=== PATIENT | female | born 1940 | race Caucasian/White ===

== ENCOUNTER 2016-05-06 17:44 | Outpatient (CLI) | payer MEDICARE, OTHER ==
[2016-05-06] MEDS ORDERED: IOPAMIDOL-300 50 ML VIAL PO ONE (19:55)
[2016-05-06] MEDS ORDERED: IOPAMIDOL-300 100 ML VIAL IVP ONE (19:55)
== END 2016-05-06 17:45 | disposition home or self-care (01) ==
DX: C56.9 Malignant neoplasm of unspecified ovary (principal); C78.7 Secondary malignant neoplasm of liver and intrahepatic bile duct; C77.2 Secondary and unspecified malignant neoplasm of intra-abdominal lymph nodes
CPT/HCPCS: 74177; Q9967

== ENCOUNTER 2016-06-21 12:56 | Outpatient (CLI) | payer MEDICARE, OTHER | END 2016-06-21 12:57 | disposition home or self-care (01) | DX: Z51.5 Encounter for palliative care (principal); G47.00 Insomnia, unspecified; F41.9 Anxiety disorder, unspecified; M25.512 Pain in left shoulder; M25.511 Pain in right shoulder; C56.9 Malignant neoplasm of unspecified ovary; C78.7 Secondary malignant neoplasm of liver and intrahepatic bile duct; C79.89 Secondary malignant neoplasm of other specified sites; I10 Essential (primary) hypertension; Z79.52 Long term (current) use of systemic steroids ==

== ENCOUNTER 2016-07-04 11:36 | Outpatient (CLI) | payer MEDICARE, OTHER | END 2016-07-04 11:37 | disposition home or self-care (01) | DX: Z51.5 Encounter for palliative care (principal); C56.9 Malignant neoplasm of unspecified ovary; C79.89 Secondary malignant neoplasm of other specified sites; M25.512 Pain in left shoulder; M25.511 Pain in right shoulder; M54.2 Cervicalgia; F41.9 Anxiety disorder, unspecified; Z79.899 Other long term (current) drug therapy; D61.811 Other drug-induced pancytopenia; Z66 Do not resuscitate; R11.0 Nausea; G62.9 Polyneuropathy, unspecified ==

== ENCOUNTER 2016-08-26 10:28 | Outpatient (CLI) | payer MEDICARE, OTHER ==
--- NOTE | 2016-08-27 06:03 | CONSULTATION NOTE ---
DATE OF CONSULTATION: 08/26/2016 00:00:00 REQUESTING PROVIDER: Moustapha Jules MD TIME OF VISIT: 10:40 to 11:40. Thank you, Dr. Jules, for asking the Palliative Care Consult Service to be involved in the care of your patient. I am providing support regarding symptom management, as well as goals of care and transition planning. 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 She has undergone multiple chemotherapy regimens after surgery. She is currently being treated with topotecan and Avastin, was having difficulty with thrombocytopenia and has recently on her appointment revamped her program to accommodate this. Was just sobering news of her increasing CA-125, which went up from 28.6 in July to now 43.2, and increasing LDH brings a bit of a dose of reality that she most likely will continue to decline, though certainly are hoping for increased quality of life, as well as increase quantity of life. SYMPTOM BURDEN: She actually have fairly low symptom burden. She denies any pain. She does have some mild fatigue at a 2/10, and the rest of her symptoms, as far as drowsiness, nausea, anorexia, shortness of breath, depression, and anxiety are quite controlled, and she perceives her current quality of life as doing quite well. CODE STATUS: The patient is a DO NOT RESUSCITATE, LIMITED INTERVENTIONS, DETERMINE THE USE OR LIMITATION OF ANTIBIOTICS WITH COMFORT THE GOAL AND NO MEDICALLY ASSISTED NUTRITION. Her focus, again, is on quality of life, hoping again for more quantity of life, and is doing fairly well, as far as currently tolerating her regimen. 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 She is approaching this very thoughtfully and wanting to be engaged in managing her journey. She does share this with friends and family through communication with blogs, phone calls, and ongoing support. She continues to work towards getting her affairs in order, and her , Justin, is very engaged and partnered in this process. REVIEW OF SYSTEMS CONSTITUTIONAL: Overall, she is feeling quite well, though she has some fatigue. HEENT: Eyes: She does have Fuchs. GASTROINTESTINAL: She has not had any nausea. GENITOURINARY: She continues to have small amounts of pink vaginal drainage with some fluctuating in this. No recurrent cystitis symptoms. MUSCULOSKELETAL: She is feeling much improved after the OT, as far as her neck and shoulder pain and discomfort, has worked well, as far as support with this. SKIN: She continues with dryness. 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 GASTROINTESTINAL: She does report some multiple loose stools, has, over the last couple days, had more of a mustard color. We did discuss, if it turns chalky white, or if signs or symptoms of bleeding, to notify the healthcare providers, though patient is certainly during this time period reports intake of fiber foods of fresh fruits and vegetables. PSYCHIATRIC: She does express feeling somewhat flattened in responsive to this last move; some concern about her emotional response her regarding this. She continues to work with her anxiety and plans to follow up with a psychiatrist. ENDOCRINE: No recent history of infections. HEMATOLOGIC/IMMUNOLOGIC: Continues to have fluctuating platelets in response to her topotecan on 08/19/2016, though they were up to 267. LABORATORY: She remains slightly anemic with her hemoglobin 10.4, hematocrit 30.8. Her white count is sitting at 5.6. Her other abnormal labs include alkaline phosphate and LDH at 467. PHYSICAL EXAMINATION GENERAL: This is a vania 76-year-old woman who appears younger than her stated age. Her voice is modulated. She is able to engage and participate in the conversation. HEENT: Eyes with slight periorbital edema. ENT: Mucous membranes are moist. NECK: Trachea midline. RESPIRATORY: Her breath sounds are clear. CARDIOVASCULAR: Pulse is 74 and regular, blood pressure 124/81. ABDOMEN: She continues to have some roundness and fullness, some firmness, but no tautness, no masses appreciated. Exam is limited as she is standing. SKIN: Color pale. EXTREMITIES: She continues with some limited range of motion in her arms and shoulders. Her gait is steady, and no lower extremity edema. PALLIATIVE CARE DISCUSSION/WHO IS PRESENT: Myself, the patient, and her , again looking at quality of life issues, particularly around relationships within her family, have best to annotate and support others who are feeling somewhat burdened by her and impending decline and disease process, ways to set limits, encouraging others to find outside support and also from communication, as far as a less busy work was reviewed. The patient is quite thoughtful, as far as an intentional putting the pieces in place. I did encourage, of course, to continue to look forward to finishing up legal affairs, spending time that brings her karmen and comfort, resolving any regrets or conversations that need to be had, as well as ventured into planning today. IMPRESSION: This is a 76-year-old woman with stage IV ovarian cancer with persistent disease in her liver, pelvic, now a 4th-line chemotherapy. Continues to recognize the seriousness of her illness, as well as the chronicity, though feeling somewhat more vulnerable with her changing her recent regimen and her rising CA-125. RECOMMENDATIONS/COUNSELING DONE 1. Bilateral shoulder pain. She is finding relief in working with OT; does feel like most of that was not completed. 2. Abdominal vaginal discomfort cystitis. This is managed with her CBD has not needed any change in her pain regimen. 3. Anxiety appears to be currently managed on her current medications; did review and support looking at the different paths, as far as this last leg in her journey. She continues to focus on quality of life, as well as best of intentions looking towards quantity of life. 4. Advanced care planning. Patient does have a POLST in place. Her documents have been distributed to appropriate providers and to the HIM. She and her are looking at finishing up her legal affairs and planning. Patient counseling was done regarding weighing benefits and burdens, decision points regarding chemotherapy and the continuum of care including hospice. The patient presents with low symptom burden, no weight loss, continued ongoing chemotherapy as prognostic indicators in her favor. Time spent 60 minutes, with greater than 50% of this done in counseling regarding psychosocial aspects and advanced care planning needs for living with stage IV disease, as well as anticipatory guidance. JOB #: [id number] EXT JOB #:[id number] MANJULA
== END 2016-08-26 10:29 | disposition home or self-care (01) ==
LOC: PC 10:28
PROVIDERS: ATTEND Nurse Practitioner Adult Health
DX: Z51.5 Encounter for palliative care (principal); M25.512 Pain in left shoulder; M25.511 Pain in right shoulder; R10.9 Unspecified abdominal pain; R10.2 Pelvic and perineal pain; N30.90 Cystitis, unspecified without hematuria; F41.9 Anxiety disorder, unspecified; C56.9 Malignant neoplasm of unspecified ovary; C78.7 Secondary malignant neoplasm of liver and intrahepatic bile duct; F32.9 Major depressive disorder, single episode, unspecified; Z66 Do not resuscitate; Z79.899 Other long term (current) drug therapy
CPT/HCPCS: 99215

== ENCOUNTER 2016-11-08 13:30 | Outpatient (CLI) | payer MEDICARE, OTHER ==
--- NOTE | 2016-11-08 16:28 | PROVIDER PROGRESS NOTE ---
Palliative Care Follow Up - Referral Referring Provider: Dr. Jules/Denis Time of Visit: [id number] Referral setting: Home (patient is seen in her home setting, she presents with increased fatigue and decreased activity tolerance and to facilitate a family meeting) Referral Reason: Stage IV Ovarian Cancer - Information Sources Records Reviewed: Old records reviewed History obtained from: Patient Exam limitations: No limitations - History of Present Illness Update Brief HPI Update: This is a vania 76-year-old woman with stage IV ovarian cancer, originally diagnosed in 04/2014 with metastatic high-grade serous carcinoma. She has undergone multiple chemotherapeutic creatinine regimens since her original surgery. As she is currently on third line Topotecan and Avastin, she has been having difficulty with thrombocytopenia that has been watching an increase in her CA-125 and increasing LDH. Most recently she had a restaging CT scan of the abdomen and pelvis, unfortunately the liver demonstrated progression of disease with a new masses in the portal confluence measuring 3.5 x 3.3 cm and a mass adjacent to the falciform ligament measuring 3.2 x 1.9 cm. She also has a increased size with several of her nodes as well as an increase in a splenic lesion. The mass at her vaginal cuff is also increased in size now measuring 6.6x3.1 cm. Concerning was also a new diagnosis of widespread pulmonary metastases, measuring up to 3.5 cm. The patient reports she has been having increased anorexia, early satiety, increased reflux symptoms, an underlying nausea. 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 She is also noted significant increase in fatigue , this is most likely multifactorial, if she is anemic, has had 5-6 pound weight loss, and shows disease progression. She requested a meeting, with her family, and to prepare for a discussion regarding goals of care. Social History - Living Situation Living arrangement: At home Living Situation: With spouse/s.o. Support System: Her daughter Dara and her Javier from [place], are joining today for goals of care conversation and support Medications/Allergies - Medications Home Medications: Ambulatory Orders Medication Instructions Recorded Confirmed Hydrochlorothiazide 25 mg PO DAILY 05/02/14 10/16/16 Nefazodone HCl 250 mg PO DAILY 05/02/14 10/16/16 Raloxifene [Evista] 60 mg PO DAILY 05/02/14 11/08/16 Venlafaxine HCl [Venlafaxine HCl 75 mg PO DAILY 05/02/14 11/08/16 ER] Calcium Carb, Citrate/Vit D3 1 each PO DAILY 05/11/14 10/16/16 [Citracal + D ER Tablet] Cholecalciferol (Vitamin D3) 5,000 unit PO DAILY 05/11/14 10/16/16 [Vitamin D] Loteprednol Etabonate [Lotemax] 1 drop EACHEYE DAILY 05/11/14 10/16/16 Omeprazole [PriLOSEC] 20 mg PO BID 03/27/16 10/16/16 Atenolol 50 mg PO DAILY 08/21/16 10/16/16 LORazepam [Ativan] 0.5 mg PO Q6H PRN 11/06/16 11/06/16 Prochlorperazine Supp [Compazine 25 mg [place] PRN PRN 11/08/16 11/08/16 Supp] - Allergies Allergies/Adverse Reactions: Allergies Allergy/AdvReac Type Severity Reaction Status Date / Time silver * Allergy Intermediate skin Verified 05/09/14 10:00 [From [employer] Mesh] excoriation Contrast dye Allergy Anaphylaxis Uncoded 05/05/14 13:15 Seafood Allergy Anaphylaxis Uncoded 05/05/14 13:15 Review of Systems - Constitutional Constitutional: reports: Fatigue (much more prominent limiting activity; prolonged standing causing dizzyness;needing to pace activities), Poor appetite , Weight loss (noted 5-6 pounds) - Eyes Eyes: reports: Vision loss, Corrective lenses - Ears, Nose & Throat Ears, Nose & Throat: denies: Hearing loss, Sore throat - Cardiovascular Cariovascular: reports: Lightheadedness, Exertional dyspnea, Decr. exercise tolerance. denies: Chest pain, Edema - Respiratory Respiratory: reports: SOB with exertion. denies: Cough - Gastrointestinal Gastrointestinal: reports: Abdominal pain (limited but uncomfortable; located above umbilicus around area mass palapated), Change in bowel habits (if bowels don't move increase discomfort and distress), Nausea, Reflux/heartburn, Poor appetite, Other (early satiety) - Genitourinary Genitourinary: denies: Incontinence - Musculoskeletal Musculoskeletal: reports: Limited range of motion (upper arms/shoulders), Muscle weakness - Integumentary Integumentary: reports: Hair changes (mild thinning) - Neurological Neurological: reports: General weakness, Incoordination (walks wide based for balance; using cane when out) - Psychiatric Psychiatric: reports: Anxiety (supported with medication and pscychiatrist). denies: Depression - Endocrine Endocrine: reports: Other (no diabetes/thyroid issues) - Hematologic/Lymphatic Hematologic/Lymphatic: reports: Anemia (HCT @ 31) Physical Examination - Vital Signs Temperature: 98.6 C Pulse Rate: 89 Respiratory Rate: 18 O2 Saturation: 95 (RA @ rest) Blood Pressure: 128/64 - Physical Exam General Appearance: positive: No acute distress Eyes Bilateral: positive: Normal inspection ENT: positive: No signs of dehydration Neck: positive: No JVD, Trachea midline Respiratory: positive: Breath sounds nml. negative: Wheezes, Rales Cardiovascular: positive: Regular rate & rhythm Abdomen: positive: Nml bowel sounds, Tenderness, Mass (palpated lemon size mass below sternal notch over area; abdomen soft;no s/s ascites or lower extremity edeam). negative: Hepatomegaly Skin: positive: Pallor Extremities: positive: No pedal edema, Other (appears with some muscle wasting in upper extremeties) Neurologic/Psychiatric: positive: Oriented x3, Mood/affect nml Palliative Care - POLST Patient has POLST: Yes POLST Status: DNR, Limited Interventions (Determine the use of antibiotics with comfort as the goal; No medically assisted nutrition) Pain: Pain worsening, Location (left sided "stitch"; mid abdominal), Severity ( mild, no further medication needed than cannabis) Drowsiness: Mild (1-3) Nausea: Mild (1-3) Anxiety: Mild (1-3) Dyspnea: Mild (1-3) Anorexia: Moderate (4-6), Weight loss Insomnia: Sleeps well Constipation: No Feelings of wellbeing/Perceived Quality of Life: Worsening (Feels things are shifting; scans had confirmed what she had been experiencing; getting very tired of chemotherapy as well; was hoping to take a break) Performance Status: Patient no able to do baseline "walks" currently secondary to weakness and fatigue, that is new the last couple of weeks; needing to pace activities, and tolerating standing less. Palliative Care Performance Status [70%]. - Palliative Care Discussion: Surrogate decision maker-Justin Torres Patient requested family meeting to discuss most progression of disease. She is scheduled to see Dr. Stone on next and Dr. Barrios on Friday. She was hoping to formulate questions that might be of help for planning into the future and regarding her prognosis. Present for conversation, is her daughter Dara and Dara's Javier. They are wanting to provide support for both Justin and Ameena, in this difficult time. In our discussion, it included wieighing benefits and burdens, treatment options versus supportive care, the continuum of care from palliative care to hospice. The patient recognizes the seriousness of her illness, and feels internally that she has made some shift, wondering if it is time to be focusing on a good . She does admit to ambivalence, if there were treatment options she would still consider them. In discussion of the continuum of care regarding hospice philosophy and hospice benefit, accessing long-term care insurance, and on the role or accessibility of [facility] as part of long-term planning component. Reviewed in a global way, expected decline, and some of the concerns were "pitfalls" that might come their way. Questions were answered to patient's and family's satisfaction. Results - Lab Results Lab results reviewed: Yes Impression and Recommendations - Palliative Care Impression: his is a vania 76-year-old womanith stage IV ovarian cancer which metastatic disease including liver, spleen, and lung metastases. She is currently struggling and processing the news of her progression of her disease despite treatment. True to patient's nature, she is wanting to process and explore how best to approach this next phase, finding information and counseling regarding the continuum of care helpful as she moves forward. Recommendations/Counseling Done: 1. Weight loss, multifactorial in origin. Patient presents with increased symptoms of reflux, and instructed her to increase her omeprazole 20 mg 2 twice a day. I dressed her questions and counseling provided regarding diet, encouraged soft easily digestible foods and to use the lorazepam for low-grade nausea as needed. She reports ondansetron this not work well for her. 2. Fatigue, this is multifactorial as well. He does present with weight loss, muscle wasting, anemia, and decreased intake. She has had some dizziness and unsteadiness, instruction on pacing of activities continue to ambulate with a cane, patient may benefit from low-dose dexamethasone 4 mg in the future if she chooses no further treatment and supportive care only. 3. Constipation. Patient managing currently with Citrucel, stool softeners, and diet. Emphasized need to have frequent small soft stools, encouraged to add MiraLAX if experiencing difficulties. 4. Advanced care planning. Family conference to include discussion and counseling regarding goals of care, treatment versus supportive care, continuum of care including palliative care versus hospice, and the weighing of benefits and burdens moving forward. Time Spent: time spent 75 minutes greater than 50% of this done and counseling were goals of care/symptom management/and anticipatitory guidance.
== END 2016-11-08 13:31 | disposition home or self-care (01) ==
LOC: PC 13:30
PROVIDERS: ATTEND Nurse Practitioner Adult Health
DX: Z51.5 Encounter for palliative care (principal); R63.4 Abnormal weight loss; K21.9 Gastro-esophageal reflux disease without esophagitis; R53.83 Other fatigue; D64.9 Anemia, unspecified; R42 Dizziness and giddiness; R26.81 Unsteadiness on feet; K59.00 Constipation, unspecified; C56.9 Malignant neoplasm of unspecified ovary; C78.00 Secondary malignant neoplasm of unspecified lung; C78.7 Secondary malignant neoplasm of liver and intrahepatic bile duct; C78.89 Secondary malignant neoplasm of other digestive organs; Z79.899 Other long term (current) drug therapy; Z66 Do not resuscitate
CPT/HCPCS: 99350

== ENCOUNTER 2016-11-20 09:30 | Outpatient (CLI) | payer MEDICARE, OTHER ==
--- NOTE | 2016-11-20 19:22 | PROVIDER PROGRESS NOTE ---
Palliative Care Follow Up - Referral Referring Provider: Dr. 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 She does have from restaging CT scan, documentation of progressive disease with new masses. She also has a new diagnosis of widespread pulmonary metastasis. She has met this last the with her oncologist Dr. Barrios, as well as Dr. Lebron, to help her weigh the benefits and burdens of pursuing further treatment. She has undergone multiple chemotherapeutic regimens since her original surgery. In conclusion, she has decided to focus on her time left, and transitioned to hospice support. She is very thoughtful but somewhat anxious, and planning this next stage of her journey. She does have some increase in symptom burden, with early satiety, mild anorexia , and increasing abdominal discomfort. She does not present with acute pain or obstructive symptoms today. Her most significant symptom, has been fatigue, which is most likely multifactorial but does impact her current quality of life. Social History - Living Situation Living arrangement: At home Living Situation: With spouse/s.o. 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 Many friends wanting to be of assistance Medications/Allergies - Medications Home Medications: Ambulatory Orders Medication Instructions Recorded Confirmed Hydrochlorothiazide 25 mg PO DAILY 05/02/14 11/13/16 Nefazodone HCl 250 mg PO DAILY 05/02/14 11/13/16 Raloxifene [Evista] 60 mg PO DAILY 05/02/14 11/13/16 Venlafaxine HCl [Venlafaxine HCl 75 mg PO DAILY 05/02/14 11/13/16 ER] Calcium Carb, Citrate/Vit D3 1 each PO DAILY 05/11/14 11/13/16 [Citracal + D ER Tablet] Cholecalciferol (Vitamin D3) 5,000 unit PO DAILY 05/11/14 11/13/16 [Vitamin D] Loteprednol Etabonate [Lotemax] 1 drop EACHEYE DAILY 05/11/14 11/13/16 Omeprazole [PriLOSEC] 20 mg PO BID 03/27/16 11/13/16 Atenolol 50 mg PO DAILY 08/21/16 11/13/16 LORazepam [Ativan] 0.5 mg PO Q6H PRN 11/06/16 11/13/16 Prochlorperazine Supp [Compazine 25 mg [place] PRN PRN 11/08/16 11/13/16 Supp] - Allergies Allergies/Adverse Reactions: Allergies Allergy/AdvReac Type Severity Reaction Status Date / Time silver * Allergy Intermediate skin Verified 05/09/14 10:00 [From [employer]] excoriation Contrast dye Allergy Anaphylaxis Uncoded 05/05/14 13:15 Seafood Allergy Anaphylaxis Uncoded 05/05/14 13:15 Review of Systems - Constitutional Constitutional: reports: Fatigue, Weight loss (weight 140 (loss 7 pounds last couple of months)) - Eyes Eyes: reports: Corrective lenses - Cardiovascular Cariovascular: reports: Lightheadedness, Exertional dyspnea, Decr. exercise tolerance. denies: Chest pain - Respiratory Respiratory: reports: SOB with exertion. denies: SOB at rest - Gastrointestinal Gastrointestinal: reports: Change in bowel habits (discomfort with full bowels; using softener and citracel), Reflux/heartburn, Other (episode of fecal incontinence this am secondary to urgency; first time Early satiety) - Genitourinary Genitourinary: reports: Other (vaginal drainage intermittent sero sanginous) - Musculoskeletal Musculoskeletal: reports: Muscle weakness - Integumentary Integumentary: reports: Dryness - Neurological Neurological: reports: General weakness, Abnormal gait - Psychiatric Psychiatric: reports: Anxiety - All Other Systems All Other Systems: reports: Reviewed and negative Physical Examination - Vital Signs Temperature: 97.5 C Pulse Rate: 101 Respiratory Rate: 18 O2 Saturation: 96 Blood Pressure: 118/72 - Physical Exam General Appearance: positive: No acute distress Eyes Bilateral: positive: Conjunctivae nml ENT: positive: No signs of dehydration Neck: positive: Trachea midline Respiratory: positive: Breath sounds nml Cardiovascular: positive: Regular rate & rhythm Skin: positive: Pallor (somewhat sallow in color) Extremities: positive: No pedal edema Neurologic/Psychiatric: positive: Oriented x3, Mood/affect nml Palliative Care - POLST Patient has POLST: Yes POLST Status: DNR, Comfort Measures Pain: Pain unchanged, Location (abdominal; cramping and intermittent; currently controlled with cannibus) Drowsiness: Comment (noting increase fatigue every week) Nausea: Mild (1-3) (uses lorazepam with relief) Anorexia: Mild (1-3) Insomnia: Other (having more difficulty sleeping last week) Constipation: Yes, Managed Performance Status: Palliative Care Performance Status [70%)Patient currently is able to manage her own ADLs. She does have less activity tolerance, but is attempting to continue her daily walks. Her physical stamina is continued to decline, and this finding she's needing to pace her activities. - Palliative Care Discussion: Surrogate decision maker- Justin Torres her .Patient expresses some relief , and coming to a decision. She has shared this with her friends and family. She has had somewhat of an overwhelming response. She felt both oncologists are able to assist her, and understanding her current options, as well as provide some anticipatory guidance for what is ahead. Specifically her understanding, from Dr. Stone is that she most likely has around 3 months, and he did not feel that she would obstruct. This has been a concern to her. She is somewhat anxious regarding the transition to hospice, but has decided, her goal is to have a at home. Justin, her , is in support of this. They had been exploring [facility] as an option, but she does feel more strongly about being in her home setting. In the context of this conversation, and the transition to hospice, we completed her POLST to reflect these new goals. She continues to address her end-of-life plans, looking at Legacy and legal issues. - Other Findings/Comments Additional Discussion: Did review briefly, her long-term care insurance, but she has no waiting period it does require that she needs assistance with her ADLs. We did review specifically the threshold as far as personal-care, supplementing hospice team support, and encouraged them to followup with the social sciences lecturer to identify when and whom to access. 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 She has made a decision to move forward with transition to hospice, and pursue no further treatment options. She presents with moderate symptom burden, ongoing functional decline, and with define goals for a at home. Recommendations/Counseling Done: 1. Weight loss. Multifactorial in origin, is exploring ways to manage her diet, address symptoms of early satiety, and managed reflux. 2. Fatigue, this is multifactorial as well. She does have weight loss, muscle wasting, anemia, and increased tumor burden. May consider low-dose dexamethasone 4 mg in the future, patient has many reactions to medications, and likes to keep them at a minimum. She is using medical marijuana for pain, nausea, and anxiety. 3. Constipation. Him patient did have episode of urgency and fecal incontinence today, she has been using softeners, diet, and Citrucel. Started to decrease Citrucel dosing but continued to focus on soft daily bowel movements. She still presents for risk for partial bowel obstruction given her tumor burden intra- abdominal cavity. 4. Insomnia. Counseling regarding increased anxiety, multiple changes in last few days, and normalized her current reaction. Given her underlying anxiety, recommended the lorazepam over the zolpidem for sleep. Instructed she may repeat it, regarding her concerns for daytime drowsiness. 5. Advanced care planning. Family conference included patient and her . Counseling and recommendation identify a central person to respond to the overwhelming outpouring of support and offers to help. POLST reviewed and updated to reflect current goals of care. Counseling regarding and adressing questions about hospice and hospice benefit, and anticipatory guidance, and long -term care insurance. Time Spent: 60 minutes greater than 50% of this done in counseling and coordination of care regarding transition to hospice, addressing symptoms, completing new POLST and anticipatory guidance.
== END 2016-11-20 09:31 | disposition home or self-care (01) ==
LOC: PC 09:30
PROVIDERS: ATTEND Nurse Practitioner Adult Health
DX: Z51.5 Encounter for palliative care (principal); R63.4 Abnormal weight loss; R68.81 Early satiety; K21.9 Gastro-esophageal reflux disease without esophagitis; R53.83 Other fatigue; D64.9 Anemia, unspecified; K59.00 Constipation, unspecified; R15.9 Full incontinence of feces; G47.00 Insomnia, unspecified; F41.9 Anxiety disorder, unspecified; I10 Essential (primary) hypertension; C56.9 Malignant neoplasm of unspecified ovary; C78.00 Secondary malignant neoplasm of unspecified lung; Z66 Do not resuscitate; C78.7 Secondary malignant neoplasm of liver and intrahepatic bile duct
CPT/HCPCS: 99350

== ENCOUNTER 2017-01-23 16:53 | Outpatient (CLI) | payer MEDICARE, OTHER | END 2017-01-23 16:54 | disposition EMS.NT | LOC: EMS 16:53 | PROVIDERS: ATTEND Surgery | DX: Z03.89 Encounter for observation for other suspected diseases and conditions ruled out (principal); W06.XXXA Fall from bed, initial encounter; Y92.003 Bedroom of unspecified non-institutional (private) residence as the place of occurrence of the external cause ==